=== PATIENT | female | born 1950 | race Caucasian/White ===

== ENCOUNTER 2024-03-25 16:50 | Inpatient (IN) | payer MEDICARE, BC ==
[~2024-03-25] VITALS: Ht 170.2 cm; Wt 67.6 kg
[~2024-03-25 16:50] MED LIST: CARI350T27 PO; IBUP-1955 PO; OMEP40CA21 PO; PROM25TA15 PO; ROSU20TA2 PO
[2024-03-25 17:17] LABS: BASOPHILS % (AUTO) 0.5 % (0.0-2.0); EOSINOPHILS # (AUTO) 0.1 K/uL (0.0-0.7); EOSINOPHILS % (AUTO) 2.8 % (0.0-7.0); HEMATOCRIT 34.2 % (31.2-41.9); HEMOGLOBIN 11.8 g/dL (10.9-14.3); LYMPHOCYTES # (AUTO) 1.2 K/uL (0.8-4.8); LYMPHOCYTES % (AUTO) 28.2 % (20.5-51.5); MEAN CORPUSCULAR HEMOGLOBIN 33.9 uug (24.7-32.8); MEAN CORPUSCULAR HGB CONC 35 g/dL (32.3-35.6); MEAN CORPUSCULAR VOLUME 98.4 fL (75.5-95.3); MONOCYTES # (AUTO) 0.3 K/uL (0.1-1.30); MONOCYTES % (AUTO) 7.2 % (0.0-11.0); NEUTROPHILS # (AUTO) 2.5 K/uL (1.8-8.9); NEUTROPHILS % (AUTO) 61.3 % (38.5-71.5); PLATELET COUNT (AUTO) 167 K/uL (179-408); RED BLOOD CELL COUNT(AUTO) 3.48 MIL/uL (3.63-4.92); RED CELL DISTRIBUTION WIDTH 12.4 % (12.3-17.7); WHITE BLOOD COUNT (AUTO) 4.1 K/uL (3.8-11.8)
[2024-03-25 17:34] LABS: DIFFERENTIAL COMMENT 1
[2024-03-25 17:47] LABS: ALANINE AMINOTRANSFERASE 28 U/L (14-59); ALBUMIN 4.2 g/dL (3.4-5.0); ALKALINE PHOSPHATASE 99 U/L (50-136); ASPARTATE AMINOTRANSFERASE 15 U/L (15-37); BILIRUBIN,DIRECT 0.1 mg/dL (0.0-0.2); BILIRUBIN,TOTAL 0.3 mg/dL (0.2-1.0); CALCIUM 10.1 mg/dL (8.5-10.1); CARBON DIOXIDE 24 mmol/L (21-32); CHLORIDE 107 mmol/L (98-107); CREATININE 0.9 mg/dL (0.6-1.3); GLUCOSE 107 mg/dL (74-106); POTASSIUM 3.7 mmol/L (3.5-5.1); SODIUM SERUM 143 mmol/L (136-145); UREA NITROGEN, BLOOD 22 mg/dL (7-18)
[2024-03-25 17:51] LABS: ACETAMINOPHEN < 2.0 ug/mL (10-30); ETHANOL < 3 MG/DL (0-10)
[2024-03-25 18:12] LABS: *AMPHETAMINE, URINE NEGATIVE (NEGATIVE); *BARBITURATE, URINE POSITIVE (NEGATIVE); *BENZODIAZEPINE, URINE NEGATIVE (NEGATIVE); *CANNABINOID, URINE NEGATIVE (NEGATIVE); *COCCAINE, URINE NEGATIVE (NEGATIVE); *OPIATE, URINE NEGATIVE (NEGATIVE); *PHENCYCLIDINE SCREEN,URINE NEGATIVE (NEGATIVE)
[2024-03-25] MEDS ORDERED: CARISOPRODOL 350 MG TABLET PO PRN (18:30)
[2024-03-25] MEDS ORDERED: IBUPROFEN 600 MG TABLET PO PRN (18:30)
[2024-03-25] MEDS ORDERED: LITH300C4 PO (18:45)
[2024-03-25] MEDS ORDERED: ESCI20TA44 PO (18:45)
[2024-03-25] MEDS ORDERED: ATOR10TA PO (18:45)
[2024-03-25] MEDS ORDERED: MELO-107 PO (18:45)
[2024-03-25] MEDS ORDERED: RISP2TAB85 PO (18:45)
[2024-03-25] MEDS ORDERED: PRIM50TA5 PO (18:45)
[2024-03-25 19:41] LABS: FENTANYL, URINE NEGATIVE (NEGATIVE)
[2024-03-25 20:38] LABS: *BILIRUBIN,URIN NEGATIVE (NEGATIVE); *BLOOD, URINE NEGATIVE (NEGATIVE); *CLARITY,URINE CLEAR (CLEAR); *COLOR,URINE YELLOW (YELLOW); *KETONES,URINE TRACE (NEGATIVE); *PROTEIN,URINE TRACE (NEGATIVE); *UROBILINOGEN,URINE 0.2 E.U./dl (NORMAL); LEUKOCYTE ESTERASE ,URINE TRACE (NEGATIVE); NITRITE, URINE NEGATIVE (NEGATIVE); UGLUCOSE NEGATIVE (NEGATIVE)
[2024-03-25 20:47] LABS: BACTERIA,URINE FEW /HPF (NONE SEEN); RBC,URINE 0-3 /HPF (0-3); SQUAMOUS EPITHELIAL CELL,UR FEW /HPF (NONE SEEN)
[2024-03-25] MEDS: ATORVASTATIN 40 MG TABLET PO SCH (21:00)
[2024-03-25 21:15] VITALS: BP 132/63; TEMP 98.3; O2SAT 95
[2024-03-26] MEDS ORDERED: MAG HYDROX/AL HYDROX/SIMETH 30 ML LIQUID UDC PO PRN (00:45)
[2024-03-26] MEDS ORDERED: LORAZEPAM 1 MG TABLET PO PRN (00:45)
[2024-03-26] MEDS ORDERED: ZOLPIDEM 5 MG TABLET PO PRN (00:45)
[2024-03-26] MEDS ORDERED: ACETAMINOPHEN 325 MG TABLET PO PRN (00:45)
[2024-03-26] MEDS ORDERED: CARISOPRODOL 350 MG TABLET PO PRN ×2 (05:42→05:45)
[2024-03-26] MEDS ORDERED: IBUPROFEN 600 MG TABLET PO PRN ×2 (05:42→05:45)
[2024-03-26] MEDS ORDERED: PANTOPRAZOLE SODIUM 40 MG TABLET.DR PO SCH ×2 (07:00)
[2024-03-26 07:50] VITALS: BP 124/53; TEMP 97.8; O2SAT 98
[2024-03-26] MEDS ORDERED: LITHIUM CARBONATE 150 MG CAPSULE PO SCH (09:00)
[2024-03-26] MEDS: LITHIUM CARBONATE 150 MG CAPSULE PO SCH (09:16)
[2024-03-26] MEDS: risperiDONE 0.5 MG TABLET PO SCH (09:16)
[2024-03-26] MEDS: MELOXICAM 7.5 MG TABLET PO SCH (10:13)
[2024-03-26] MEDS: ESCITALOPRAM OXALATE 10 MG TABLET PO SCH (14:36)
[2024-03-26 15:36] VITALS: BP 107/51; TEMP 97.8; O2SAT 98
[2024-03-26 19:54] VITALS: BP 115/48; TEMP 97.9; O2SAT 100
[2024-03-26] MEDS: ATORVASTATIN 10 MG TABLET PO SCH (20:59)
[2024-03-26] MEDS ORDERED: ATORVASTATIN 40 MG TABLET PO SCH (21:00)
[2024-03-26] MEDS ORDERED: ATORVASTATIN 10 MG TABLET PO SCH (21:00)
[2024-03-27 08:02] VITALS: BP 111/57; TEMP 98; O2SAT 100
[2024-03-27 15:19] VITALS: BP 123/76; TEMP 98; O2SAT 100
[2024-03-27 19:49] VITALS: BP 116/56; TEMP 98.1; O2SAT 100
[2024-03-28 07:40] VITALS: BP 110/47; TEMP 98.2; O2SAT 98
[2024-03-28 15:23] VITALS: BP 112/50; TEMP 98.2; O2SAT 99
[2024-03-28] MEDS: MAGNESIUM HYDROXIDE 30 ML LIQUID UDC PO PRN (17:35)
[2024-03-28 20:00] VITALS: BP 110/52; TEMP 97.5; O2SAT 98
[2024-03-29 08:03] VITALS: BP 128/68; TEMP 98.2; O2SAT 98
[2024-03-29] MEDS: ESCITALOPRAM OXALATE 10 MG TABLET PO SCH (09:02)
[2024-03-29] MEDS ORDERED: MIRALAX 17 GM POWD.PACK PO PRN (11:15)
[2024-03-29 15:04] VITALS: BP 118/47; TEMP 98.4; O2SAT 99
[2024-03-29 20:00] VITALS: BP 143/52; TEMP 97.6; O2SAT 95
[2024-03-29] MEDS: SENNOSIDES 1 TABLET PO SCH (20:11)
[2024-03-30 08:00] VITALS: BP_SYST 129; BP_SYST 137; BP_DIAS 53; BP_DIAS 88; TEMP 97.6; TEMP 97.7; O2SAT 97; O2SAT 98
[2024-03-30 20:00] VITALS: BP 113/54; TEMP 98.2; O2SAT 95
[2024-03-31 08:20] VITALS: BP 115/64; TEMP 97.9; O2SAT 99
[2024-03-31 16:18] VITALS: BP 121/71; TEMP 97.9; O2SAT 99
[2024-03-31 21:00] VITALS: BP 139/62; TEMP 98.2; O2SAT 99
[2024-04-01 08:10] VITALS: BP 116/54; TEMP 98.1; O2SAT 99
[2024-04-01 16:27] VITALS: BP 111/53; TEMP 98.1; O2SAT 98
[2024-04-01 20:11] VITALS: BP 114/65; TEMP 98.1; O2SAT 98
[2024-04-02] MEDS: LITHIUM CARBONATE 300 MG CAPSULE PO SCH (08:25)
[2024-04-02 09:31] VITALS: BP 121/48; TEMP 97.6; O2SAT 98
[2024-04-02 16:38] VITALS: BP 111/46; TEMP 97.8; O2SAT 98
[2024-04-02 19:57] VITALS: BP 96/49; TEMP 97.8; O2SAT 100
[2024-04-03 08:00] VITALS: BP 111/41; TEMP 97.5; O2SAT 99
[2024-04-03 16:34] VITALS: BP 104/51; TEMP 97.9; O2SAT 97
[2024-04-03 20:05] VITALS: BP 99/52; TEMP 97.8; O2SAT 99
[2024-04-04 08:00] VITALS: BP_SYST 116; BP_SYST 119; BP_DIAS 50; BP_DIAS 58; TEMP 98; O2SAT 99
[2024-04-04 16:10] VITALS: BP 108/52; TEMP 98.2; O2SAT 100
== END 2024-04-04 18:00 | disposition home health service (06) | DRG 885 ==
LOC: ER 17:01 → GPS 20:41
PROVIDERS: ADMIT Psychiatry & Neurology Psychiatry; ATTEND Nurse Practitioner Acute Care
DX: F25.0 Schizoaffective disorder, bipolar type (principal); E78.5 Hyperlipidemia, unspecified; K21.9 Gastro-esophageal reflux disease without esophagitis; Z79.899 Other long term (current) drug therapy; Z91.148 Patient's other noncompliance with medication regimen for other reason
CPT/HCPCS: 36415; 70030-TC; 84443; 84481; 85025; 93005; G0480

== ENCOUNTER 2025-06-12 15:24 | Inpatient (IN) | payer MEDICARE, BC ==
[~2025-06-12] VITALS: Ht 170.2 cm; Wt 66.7 kg
[~2025-06-12 15:24] MED LIST changes: +ATOR10TA PO; -CARI350T27 PO; -IBUP-1955 PO; +MELO-107 PO; -OMEP40CA21 PO; -PROM25TA15 PO; -ROSU20TA2 PO
[2025-06-12 15:31] VITALS: BP 117/54; TEMP 98.1
[2025-06-12 15:59] VITALS: BP 117/54; TEMP 98.1
[2025-06-12 20:00] VITALS: BP 112/55; TEMP 98.9; O2SAT 95
[2025-06-12] MEDS ORDERED: REMEDY ESSENTIAL ZINC PASTE 113 GM TP PRN (21:45)
[2025-06-12] MEDS ORDERED: ONDANSETRON 4 MG/2 ML VIAL IV PRN (21:45)
[2025-06-12] MEDS ORDERED: HYDROCODONE/APAP 5-325MG TABLET PO PRN (21:45)
[2025-06-12] MEDS ORDERED: ZOLPIDEM 5 MG TABLET PO PRN (21:45)
[2025-06-12] MEDS ORDERED: OLAN5TAB70 PO (21:49)
[2025-06-12] MEDS ORDERED: LITH150C PO (21:49)
[2025-06-12] MEDS ORDERED: ESCI20TA44 PO (21:49)
[2025-06-12] MEDS ORDERED: PRIM50TA27 PO (21:49)
[2025-06-13 05:00] VITALS: BP 123/58; TEMP 98.1; O2SAT 96
[2025-06-13] MEDS: PANTOPRAZOLE SODIUM 40 MG TABLET.DR PO SCH (06:14)
[2025-06-13 08:00] VITALS: BP 119/64; TEMP 98.1; O2SAT 95
[2025-06-13 08:22] LABS: PLATELET COUNT (AUTO) 164 K/uL (179-408); RED BLOOD CELL COUNT(AUTO) 2.89 MIL/uL (3.63-4.92); RED CELL DISTRIBUTION WIDTH 13.4 % (12.3-17.7); WHITE BLOOD COUNT (AUTO) 3.8 K/uL (3.8-11.8)
[2025-06-13 08:41] LABS: CREATININE 0.5 mg/dL (0.6-1.3); SODIUM SERUM 142 mmol/L (136-145); UREA NITROGEN, BLOOD 13 mg/dL (7-18)
[2025-06-13] MEDS: LITHIUM CARBONATE 150 MG CAPSULE PO SCH (09:01)
[2025-06-13] MEDS: ESCITALOPRAM OXALATE 10 MG TABLET PO SCH (09:01)
[2025-06-13] MEDS: PRIMIDONE 50 MG TABLET PO SCH (09:02)
[2025-06-13 17:00] VITALS: BP 106/49; TEMP 98.4; O2SAT 94
[2025-06-13] MEDS: OLANZAPINE 5 MG TABLET PO SCH (17:17)
[2025-06-13] MEDS: ATORVASTATIN 10 MG TABLET PO SCH (20:14)
[2025-06-13] MEDS: DOCUSATE SODIUM 100 MG CAPSULE PO SCH (20:14)
[2025-06-13 21:04] VITALS: BP 121/48; TEMP 97.8; O2SAT 95
[2025-06-14 06:53] VITALS: BP 122/60; TEMP 97.5; O2SAT 96
[2025-06-14 07:43] VITALS: BP 98/43; TEMP 97.6; O2SAT 99
[2025-06-14 16:00] VITALS: BP 129/57; TEMP 97.4; O2SAT 98
[2025-06-14 20:00] VITALS: BP 112/50; TEMP 98.2; O2SAT 96
[2025-06-15 05:00] VITALS: BP 106/47; TEMP 97.4; O2SAT 95
[2025-06-15 08:00] VITALS: BP 103/46; TEMP 97.5; O2SAT 96
[2025-06-15 16:35] VITALS: BP 88/46; TEMP 98.1; O2SAT 100
[2025-06-15 22:34] VITALS: BP 95/45; TEMP 98.1; O2SAT 96
[2025-06-16 07:13] VITALS: BP 108/54; TEMP 97.4
[2025-06-16 07:36] VITALS: BP 105/57; TEMP 97.4; O2SAT 98
[2025-06-16 16:00] VITALS: BP 121/70; TEMP 97.7; O2SAT 97
[2025-06-16 20:00] VITALS: BP 106/48; TEMP 98.3; O2SAT 97
[2025-06-17 05:22] VITALS: BP 114/51; TEMP 98; O2SAT 99
[2025-06-17 07:28] VITALS: BP 112/48; TEMP 97.6; O2SAT 98
[2025-06-17 16:00] VITALS: BP 112/57; TEMP 97.2; O2SAT 98
[2025-06-17 21:12] VITALS: BP 95/48; TEMP 98.1; O2SAT 95
[2025-06-18] MEDS: MAGNESIUM HYDROXIDE 30 ML LIQUID UDC PO PRN (02:04)
[2025-06-18 05:35] VITALS: BP 106/39; TEMP 98.1; O2SAT 95
[2025-06-18 08:00] VITALS: BP 109/45; TEMP 98.1; O2SAT 96
[2025-06-18] MEDS: CYANOCOBALAMIN 1000 MCG/ML VIAL IM ONE (09:53)
[2025-06-18 16:15] VITALS: BP 93/57; TEMP 98.6; O2SAT 97
[2025-06-18 23:47] VITALS: BP 99/48; TEMP 98.7; O2SAT 95
[2025-06-19 07:16] VITALS: BP 100/46; TEMP 98.2; O2SAT 94
[2025-06-19 08:05] VITALS: BP 107/43; TEMP 98.2; O2SAT 100
[2025-06-19 16:00] VITALS: BP 98/44; TEMP 98.7; O2SAT 97
[2025-06-19 20:00] VITALS: BP 102/52; TEMP 99.1; O2SAT 96
[2025-06-20 05:00] VITALS: BP 107/49; TEMP 98.1; O2SAT 96
[2025-06-20 08:00] VITALS: BP 100/50; TEMP 97.7; O2SAT 97
[2025-06-20 16:03] VITALS: BP 125/47; TEMP 98.9; O2SAT 97
[2025-06-20 20:07] VITALS: BP 104/46; TEMP 98.8; O2SAT 93
[2025-06-21 05:20] VITALS: BP 108/44; TEMP 98.3; O2SAT 95
[2025-06-21 07:51] VITALS: BP 100/52; TEMP 97.6; O2SAT 99
[2025-06-21 16:00] VITALS: BP 96/58; TEMP 97.6; O2SAT 98
[2025-06-22 07:19] VITALS: BP 124/56; TEMP 97.4; O2SAT 95
[2025-06-22 08:05] VITALS: BP 104/40; TEMP 98; O2SAT 95
[2025-06-22] MEDS: ACETAMINOPHEN 325 MG TABLET PO PRN (14:21)
[2025-06-22 16:00] VITALS: BP 98/53; TEMP 98.1; O2SAT 96
[2025-06-22 18:29] VITALS: BP 98/53; TEMP 98.1
[2025-06-22 20:00] VITALS: BP 114/56; TEMP 97.9; O2SAT 95
[2025-06-23 06:00] VITALS: BP 114/51; TEMP 97.5; O2SAT 95
[2025-06-23 20:00] VITALS: BP 116/38; TEMP 98.4; O2SAT 95
[2025-06-24 06:54] VITALS: BP 110/46; TEMP 98.3; O2SAT 95
[2025-06-24 07:20] VITALS: BP 102/48; TEMP 97.7; O2SAT 96
[2025-06-24 14:44] LABS: PLATELET COUNT (AUTO) 202 K/uL (179-408); RED BLOOD CELL COUNT(AUTO) 2.90 MIL/uL (3.63-4.92); RED CELL DISTRIBUTION WIDTH 13.1 % (12.3-17.7); WHITE BLOOD COUNT (AUTO) 4.5 K/uL (3.8-11.8)
[2025-06-24 14:52] LABS: CREATININE 0.7 mg/dL (0.6-1.3); SODIUM SERUM 141 mmol/L (136-145); UREA NITROGEN, BLOOD 21 mg/dL (7-18)
[2025-06-24 16:00] VITALS: BP 92/48; TEMP 98
[2025-06-24 20:00] VITALS: BP 96/42; TEMP 98.4
[2025-06-25 05:15] LABS: *BILIRUBIN,URIN NEGATIVE (NEGATIVE); *BLOOD, URINE 2+ (NEGATIVE); *CLARITY,URINE CLEAR (CLEAR); *COLOR,URINE YELLOW (YELLOW); *KETONES,URINE NEGATIVE (NEGATIVE); *PROTEIN,URINE 3+ (NEGATIVE); *UROBILINOGEN,URINE 0.2 E.U./dl (NORMAL); LEUKOCYTE ESTERASE ,URINE 1+ (NEGATIVE); NITRITE, URINE NEGATIVE (NEGATIVE); UGLUCOSE NEGATIVE (NEGATIVE)
[2025-06-25 05:33] LABS: SQUAMOUS EPITHELIAL CELL,UR FEW /HPF (NONE SEEN)
[2025-06-25 06:47] VITALS: BP 102/51; TEMP 98.2
[2025-06-25 08:12] VITALS: BP 96/51; TEMP 98
[2025-06-25 16:00] VITALS: BP 98/42; TEMP 97.8; O2SAT 97
[2025-06-25 20:00] VITALS: BP 111/47; TEMP 98; O2SAT 96
[2025-06-26 06:44] VITALS: BP 114/48; TEMP 97.4; O2SAT 95
[2025-06-26 07:22] VITALS: BP 100/59; TEMP 97.8; O2SAT 98
[2025-06-26 16:00] VITALS: BP 99/48; TEMP 97.4; O2SAT 97
== END 2025-06-26 18:30 | disposition home health service (06) | DRG 70 ==
PROVIDERS: ADMIT Physical Medicine & Rehabilitation Pain Medicine; ATTEND Physical Medicine & Rehabilitation Pain Medicine
DX: G93.41 Metabolic encephalopathy (principal); I21.A1 Myocardial infarction type 2; M62.82 Rhabdomyolysis; R53.1 Weakness; E78.5 Hyperlipidemia, unspecified; E86.9 Volume depletion, unspecified; F25.9 Schizoaffective disorder, unspecified; M89.8X9 Other specified disorders of bone, unspecified site; D53.9 Nutritional anemia, unspecified; D72.819 Decreased white blood cell count, unspecified; E86.0 Dehydration; E86.1 Hypovolemia
CPT/HCPCS: 36415; 83735; 84100; 85025; 87077; 87086; 97535-GO-CO; J3420